=== PATIENT | female | born 1995 | race Caucasian/White ===

== ENCOUNTER 2019-06-27 18:46 | Outpatient (CLI) | payer OTHER ==
[2019-06-27 19:27] LABS: APPEARANCE,URINE SLIGHTLY-CLOUDY; BILIRUBIN,URINE NEGATIVE (NEGATIVE); COLOR,URINE YELLOW; GLUCOSE, URINE NEGATIVE (NEGATIVE); KETONES,URINE NEGATIVE (NEGATIVE); LEUKOCYTE ESTERASE,URINE SMALL (NEGATIVE); NITRITE,URINE NEGATIVE (NEGATIVE); PROTEIN,URINE NEGATIVE (NEGATIVE); URINE SPECIFIC GRAVITY 1.013; UROBILINOGEN,URINE NEGATIVE mg/dL (<2.0)
[2019-06-27 19:55] LABS: URINE AMPHETAMINES SCREEN NEGATIVE; URINE BARBITURATES SCREEN NEGATIVE; URINE BENZODIAZEPINES SCREEN NEGATIVE; URINE COCAINE SCREEN NEGATIVE; URINE MARIJUANA (THC) SCREEN NEGATIVE; URINE METHADONE SCREEN NEGATIVE; URINE PHENCYCLIDINE SCREEN NEGATIVE
--- NOTE | 2019-06-27 21:00 | Non Stress Test Report ---
Non Stress Test Datetime Report Generated by CPN: 06/27/2019 20:59 DEMOGRAPHIC Test Number: 1 EGA NST: 37.6 INDICATION Indication for Study (NST) Other: LC URINE RESULTS Urine Protein, NST: Negative Urine Ketones - NST: Negative Urine Glucose - NST: Negative Urine Blood - NST: Negative MONITORING Monitor Explained: Monitor Explained; Test Explained; Patient Verbalized Understanding Time on Monitor: 06/27/2019 18:57 Time off Monitor: 06/27/2019 19:50 NST Duration: 53 NST INTERVENTIONS NST Interventions: None Physician Notified NST: Dr. Parnell BABY A: [id number] BABY A Movement : Present Contraction Frequency : x1 FHR Baseline : 145 Accelerations : 15X15 Decelerations : None Variability : Moderate 6-25bpm NST Review: Meets Criteria for Reactive NST NST Review and Verified By : Yari Rawls RN NST Results: Reactive NST REPORT Report Trigger: Send Report
== END 2019-06-27 20:00 | disposition home or self-care (01) ==
LOC: LC 18:46
PROVIDERS: ATTEND Obstetrics & Gynecology
DX: O47.1 False labor at or after 37 completed weeks of gestation (principal); Z3A.37 37 weeks gestation of pregnancy
CPT/HCPCS: 80307; 81005; 84112

== ENCOUNTER 2019-07-14 03:19 | Outpatient (CLI) | payer OTHER ==
[2019-07-14 03:49] LABS: APPEARANCE,URINE SLIGHTLY-CLOUDY; BILIRUBIN,URINE NEGATIVE (NEGATIVE); COLOR,URINE YELLOW; GLUCOSE, URINE NEGATIVE (NEGATIVE); KETONES,URINE NEGATIVE (NEGATIVE); LEUKOCYTE ESTERASE,URINE SMALL (NEGATIVE); NITRITE,URINE NEGATIVE (NEGATIVE); PROTEIN,URINE NEGATIVE (NEGATIVE); URINE SPECIFIC GRAVITY 1.012; UROBILINOGEN,URINE NEGATIVE mg/dL (<2.0)
[2019-07-14 04:05] LABS: URINE AMPHETAMINES SCREEN NEGATIVE; URINE BARBITURATES SCREEN NEGATIVE; URINE BENZODIAZEPINES SCREEN NEGATIVE; URINE COCAINE SCREEN NEGATIVE; URINE MARIJUANA (THC) SCREEN NEGATIVE; URINE METHADONE SCREEN NEGATIVE; URINE PHENCYCLIDINE SCREEN NEGATIVE
--- NOTE | 2019-07-14 04:56 | Non Stress Test Report ---
Non Stress Test Datetime Report Generated by CPN: 07/14/2019 04:56 DEMOGRAPHIC EGA NST: 40.2 INDICATION Indication for Study (NST) Other: lc/srom r/o VITAL SIGNS Temperature - NST: 98.5 Pulse - NST: 96 RESP - NST: 17 NBPSYS NST: 130 NBPDIA NST: 66 URINE RESULTS Urine Protein, NST: Negative Urine Ketones - NST: Negative Urine Glucose - NST: Negative Urine Blood - NST: Negative MONITORING Monitor Explained: Monitor Explained; Test Explained; Patient Verbalized Understanding Time on Monitor: 07/14/2019 03:33 Time off Monitor: 07/14/2019 04:23 NST Duration: 50 NST INTERVENTIONS NST Interventions: Reposition Patient Physician Notified NST: Dr Velazquez BABY A: [id number] BABY A Movement : Present Contraction Frequency : irregular FHR Baseline : 125 Accelerations : 15X15 Decelerations : None Variability : Moderate 6-25bpm NST Review: Meets Criteria for Reactive NST NST Review and Verified By : Rebekah Car, RN NST Results: Reactive NST REPORT Report Trigger: Send Report
== END 2019-07-14 04:36 | disposition home or self-care (01) ==
LOC: LC 03:19
PROVIDERS: ATTEND Obstetrics & Gynecology Gynecology
DX: O47.1 False labor at or after 37 completed weeks of gestation (principal); O48.0 Post-term pregnancy; Z3A.40 40 weeks gestation of pregnancy
CPT/HCPCS: 59025; 80307; 81005; 84112

== ENCOUNTER 2019-07-17 06:32 | Inpatient (IN) | payer OTHER ==
[2019-07-17] MEDS ORDERED: RINGERS SOLUTION,LACTATED 1,000 ML IV ONE (06:46)
[2019-07-17] MEDS ORDERED: OXYTOCIN/0.9 % SODIUM CHLORIDE 30 UNIT/500 ML RTUINJ IV PRN ×3 (06:47→17:22)
[2019-07-17] MEDS: RINGERS SOLUTION,LACTATED 1,000 ML IV PRN ×2 (07:03→07:59)
[2019-07-17] MEDS ORDERED: OXYTOCIN 10 UNIT/ML VIAL ONE (07:37)
[2019-07-17] MEDS ORDERED: MISOPROSTOL 0.2 MG TABLET ONE (07:37)
[2019-07-17] MEDS ORDERED: OXYTOCIN/0.9 % SODIUM CHLORIDE 30 UNIT/500 ML RTUINJ ONE (07:38)
[2019-07-17] MEDS ORDERED: LIDOCAINE 1% INJ-PF (10 MG/ML) 30 ML SDV ONE (07:38)
[2019-07-17 07:55] LABS: ABSOLUTE EOSINOPHILS # (AUTO) 0.2 10^3/uL (0.0-0.6); ABSOLUTE LYMPHOCYTES (AUTO) 1.7 10^3/uL (0.5-4.7); ABSOLUTE MONOCYTES (AUTO) 0.6 10^3/uL (0.1-1.4); ABSOLUTE NEUT (AUTO) 6.6 10^3/uL (1.7-8.2); BASOPHILS % (AUTO) 0.3 % (0-2); EOSINOPHILS % (AUTO) 1.9 % (0-6); HEMATOCRIT 36.9 % (36.0-47.0); HEMOGLOBIN 12.4 g/dL (12.0-15.5); LYMPHOCYTES % (AUTO) 18.5 % (13-45); MEAN CORPUSCULAR HEMOGLOBIN 29.2 pg (27.0-33.4); MEAN CORPUSCULAR HGB CONC 33.7 g/dL (32.0-36.0); MEAN CORPUSCULAR VOLUME 86 fl (80-97); MONOCYTES % (AUTO) 6.9 % (3-13); PLATELET COUNT 233 10^3/uL (150-450); RED BLOOD COUNT 4.27 10^6/uL (3.72-5.28); RED CELL DISTRIBUTION WIDTH 13.8 % (11.5-14.0); SEGMENTED NEUTROPHILS % (AUTO) 72.4 % (42-78); TOTAL CELLS COUNTED % (AUTO) 100 %; WHITE BLOOD COUNT 9.1 10^3/uL (4.0-10.5)
[2019-07-17 07:59] LABS: APPEARANCE,URINE SLIGHTLY-CLOUDY; BILIRUBIN,URINE NEGATIVE (NEGATIVE); COLOR,URINE YELLOW; GLUCOSE, URINE NEGATIVE (NEGATIVE); KETONES,URINE NEGATIVE (NEGATIVE); LEUKOCYTE ESTERASE,URINE LARGE (NEGATIVE); NITRITE,URINE NEGATIVE (NEGATIVE); PROTEIN,URINE NEGATIVE (NEGATIVE); URINE SPECIFIC GRAVITY 1.015; UROBILINOGEN,URINE NEGATIVE mg/dL (<2.0)
[2019-07-17 08:15] LABS: URINE AMPHETAMINES SCREEN NEGATIVE; URINE BARBITURATES SCREEN NEGATIVE; URINE BENZODIAZEPINES SCREEN NEGATIVE; URINE COCAINE SCREEN NEGATIVE; URINE MARIJUANA (THC) SCREEN NEGATIVE; URINE METHADONE SCREEN NEGATIVE; URINE PHENCYCLIDINE SCREEN NEGATIVE
--- NOTE | 2019-07-17 09:34 | Admission Physical ---
Datetime Report Generated by CPN: 07/17/2019 09:34 CURRENT ADMISSION Hx Assessment: The History has been Reviewed and is Current Chief Complaint: Scheduled Induction of Labor Indication for Induction: Post Dates Admit Impression : Term, Intrauterine Admit Plan: Admit to Unit; Initiate Labor Induction Protocol ALLERGIES Medication Allergies: No Medication Allergies: No Known Allergies (06/27/2019) Latex: No Latex Allergies Food Allergies: none Environmental Allergies: "outside allergies" OBSTETRICAL HISTORY EDC: 07/12/2019 00:00 : 3 Para: 1 Term: 1 : 0 SAB: 0 IAB: 0 Ectopic: 0 Livin Cesareans: 0 VBACs: 0 Multiple Births: 0 Gestational Diabetes: No Rh Sensitization: No Incompetent Cervix: No GEO: No Infertility: No ART Treatment: No Uterine Anomaly: No IUGR: No Hx Previous C/S: No Macrosomia: No Hx Loss/Stillborn: No PIH: No Hx : No Placenta Previa/Abruption: No Depression/PP Depression: No PTL/PROM: No Post Hemorrhage: No Current Procedures: Ultrasound Obstetrical History Comments: G1- Sab 7-8 weeks, pt denies G2- 2017 G3- Current SEE RECORDS Alcohol: No Marijuana : No Cocaine: No Other Illicit Drugs: No Cigarettes: Former Smoker. [id number] MEDICAL HISTORY Diabetes: No Blood Transfusion: No Pulmonary Disease (Asthma, TB): Yes Breast Disease: No Hypertension: No Dna Analyst Surgery: No Heart Disease: No Hosp/Surgery: Yes Autoimmune Disorder: No Anesthetic Complications: No Kidney Disease: No Abnormal Pap Smear: Yes Neuro/Epilepsy: No Psychiatric Disorders: Yes Other Medical Diseases: No Hepatitis/Liver Disease: No Significant Family History: No Varicosities/Phlebitis: No Trauma/Violence : No Thyroid Dysfunction: No Medical History Comments: Anxiety/depression /wisdom teeth /adnoidectomy /microdisectomy INFECTIOUS HISTORY Gonorrhea: No Genital Herpes: No Chlamydia: No Tuberculosis: No Syphilis: No Hepatitis: No HIV/AIDS Exposure: No Rash or Viral Illness: No HPV: Yes PHYSICAL EXAM General: Normal Lungs: Normal Abdomen: Normal Extremities: Normal Pelvic Type: Adequate Physical Exam Comments: proven to 8lbs 8oz Vital Signs: Reviewed Details Vital Signs: normal with 2 elevated bps-will continue to monitor MEMBRANES Membranes: Intact FETUS A EGA: 40.5 Monitoring: External US FHR Category: Category I Presentation: Vertex Admit Comment: 23yo @ 40w5d into L_D this am for IOL secondary to post dates . Pt is A positive, RI, GBS neg with significant hx of anxiety, obesity, asthma and a microdiscetomy of herniated disc in 2014. Pt was a late transfer to us @ 36w from [facility]. Plan was to start pitocin on admission which is ongoing at this time. Dr. Villafana is the OB button breaker operator today and aware of pt status PLANS FOR LABOR AND DELIVERY Feeding Preference: Breast Benefit of Breast Feed Discussed: Yes Circumcision: N/A INFORMED CONSENT Assignment: Dede Villafana MD Signature: with User ID: Amy : with User ID: Amy
[2019-07-17] MEDS ORDERED: PHENYLEPHRINE HCL INJ/PF 10 MG/1 ML SDV ONE (12:26)
[2019-07-17] MEDS ORDERED: FENTANYL CITRATE INJ/PF 100 MCG/2 ML AMPUL ONE (12:26)
[2019-07-17] MEDS ORDERED: EPHEDRINE SULFATE INJ 50 MG/1 ML AMPULE ONE (12:26)
[2019-07-17] MEDS ORDERED: FENTANYL/BUPIVACAINE/NS/PF 300 MCG/150 ML RTUINJ EPI ONE (12:27)
[2019-07-17] MEDS ORDERED: BUPIVACAINE HCL 0.25 % INJ/PF (2.5 MG/1 ML) 30 ML VIAL ONE (12:28)
--- NOTE | 2019-07-17 16:07 | Delivery Summary ---
Del Sum A-C Datetime Report Generated by CPN: 07/17/2019 16:07 DELIVERY PERSONNEL DELIVERY PERSONNEL: [id number] Delivery Doctor:: Marlene Huang CNM Labor and Delivery Nurse:: MEDHAT Wolf Labor and Delivery Nurse:: Anju Chicas RN Nursery Nurse:: delonte Obrien Tech/REGISTERED MIDWIFE: Jaqui Carreon, AWS DEVELOPER MATERNAL INFORMATION Delivery Anesthesia: Epidural Medications After Delivery: Pitocin Bolus-Please Comment; Pitocin 30 Units in 500ml NS/D5W Meds After Delivery Comment: 30 units Pitocin/1000ml NS bolus Delivery QBL: 150 Maternal Complications: Precipitous Labor (<3hrs) Provider Comments: pt progressed to c/c/1 with urge to push after epidural placement, began pushing and quickly delivered the head in KEN position. Head restituted to straight OA then [place]. Pt continued pushing and anterior shoulder was then delivered along with the rest of the body with some difficulty. Baby placed on maternal abdomen, vigorous respiratory effort and cry with tactile stimulation. Cord allowed to stop pulsating then clamped x2 and cut by FOB (3vc noted, cord blood obtained). Placenta delivered spontaneously intact, fundus firm with massage, moderate bleeding. Vaginal and perineal inspection revealed laceration as stated and hemostatic. Mother and baby remain skin to skin and bonding at this time. LABOR SUMMARY EDC: 07/12/2019 00:00 No. Babies in Womb: 1 Attempted: No Labor Anesthesia: Epidural LABOR INFORMATION Reason for Induction: Postterm Onset of Labor: 07/17/2019 11:00 Complete Dilatation: 07/17/2019 13:38 Oxytocin: Induction Group B Beta Strep: neg Antibiotics # of Doses: 0 Antibiotics Time of Last Dose: n/a Name of Antibiotic Given: n/a Steroids Given: None Reason Steroids Not Administered: Not Applicable MEMBRANES Membranes Rupture Method: Artificial Rupture of Membranes: 07/17/2019 11:24 Length of Rupture (hr): 2.42 Amniotic Fluid Color: Clear Amniotic Fluid Amount: Moderate Amniotic Fluid Odor: Normal STAGES OF LABOR Stage 1 hr: 2 Stage 1 min: 38 Stage 2 hr: 0 Stage 2 min: 11 Stage 3 hr: 0 Stage 3 min: 6 Total Time in Labor hr: 2 Total Time in Labor min: 55 VAGINAL DELIVERY Episiotomy: None Laceration #1: Perineal Laceration Extension #1: First Degree Laceration #2: None Laceration #3: None Other Laceration: superficial vaginal Laceration Repair: Not Applicable Laceration Repair Note: MLL from old scar tissue hemostatic, no need for repair Sponge Count Correct: Yes Sharps Count Correct: N/A BABY A INFORMATION Infant Delivery Date/Time: 07/17/2019 13:49 Method of Delivery: Vaginal Nurse Controlled Delivery: No Born in Route : No : N/A Forceps: N/A Vacuum Extraction: N/A Shoulder Dystocia : No PRESENTATION/POSITION BABY A Presentation: Cephalic Cephalic Presentation: Vertex Vertex Position: Left Occipital Anterior Breech Presentation: N/A PLACENTA INFORMATION BABY A Placenta Delivery Time : 07/17/2019 13:55 Placenta Method of Delivery: Spontaneous Placenta Status: Delivered SCORES BABY A Heart Rate 1 min: >100 bpm Resp Effort 1 min: Good Cry Reflex Irritability 1 min: Cough or Sneeze or Pulls Away Muscle Tone 1 min: Active Motion Color 1 min: Blue/Pale SCORE 1 MIN: 8 Heart Rate 5 min: >100 bpm Resp Effort 5 min: Good Cry Reflex Irritability 5 min: Cough or Sneeze or Pulls Away Muscle Tone 5 min: Active Motion Color 5 min: Body [place], Extremities Blue SCORE 5 MIN: 9 INFORMATION BABY A Gestational Age at Delivery: 40.5 Gestational Status: Full Term- 39- 40.6 Weeks Outcome : Liveborn Condition : Stable Infant Sex: Female IDENTIFICATION BABY A Verification Date/Time: 07/17/2019 13:49 ID Band Number: [id number] Mother's Name Verified: Yes Infant RN Verifying Infant: SLester Tuttle, RN/ D. Sherwine, RNC WEIGHT/LENGTH BABY A Birthweight (gm): 4050 Infant Weight (lb): 8 Infant Weight (oz): 15 Infant Length (in): 20.50 Infant Length (cm): 52.07 CORD INFORMATION BABY A No. Cord Vessels: 3 Nuchal Cord : N/A Cord Blood Taken: Yes-For Storage (Mom's Blood type +) Suction: Mouth; Nose ASSESSMENT BABY A Infant Complications: None Physical Findings at Delivery: Within Normal Limits Infant Respirations: Appears Normal Skin to Skin: Yes Photographic Printer/ALS Called : No Infant Care By: R Pina RN Transferred To: Remains with Mother BABY B INFORMATION : N/A SIGNATURES Assignment: Dede Villafana MD Signature: with User ID: Amy : with User ID: Amy
[2019-07-17] MEDS ORDERED: NA PHOS,M-B/NA PHOS,DI-BA (ADULT) 133 ML ENEMA PR PRN ×2 (16:44→17:22)
[2019-07-17] MEDS ORDERED: BENZOCAINE/MENTHOL AEROSOL SPRAY 56 ML TOP PRN ×2 (16:44→17:22)
[2019-07-17] MEDS ORDERED: ACETAMINOPHEN WITH CODEINE #3 TABLET PO PRN ×4 (16:44→17:22)
[2019-07-17] MEDS ORDERED: DIPHENHYDRAMINE HCL 25 MG CAPSULE PO PRN ×2 (16:44→17:22)
[2019-07-17] MEDS ORDERED: PROMETHAZINE HCL 25 MG SUPP.RECT PR PRN ×2 (16:44→17:22)
[2019-07-17] MEDS ORDERED: PROMETHAZINE HCL INJ 25 MG/1 ML VIAL IV PRN ×2 (16:44→17:22)
[2019-07-17] MEDS ORDERED: MAGNESIUM HYDROXIDE SUSP 30 ML UDCUP PO PRN ×2 (16:44→17:22)
[2019-07-17] MEDS ORDERED: ACETAMINOPHEN 650 MG SUPP.RECT PR PRN ×2 (16:44→17:22)
[2019-07-17] MEDS ORDERED: DIBUCAINE 1% OINTMENT 28 GM TP PRN ×2 (16:44→17:22)
[2019-07-17] MEDS ORDERED: PSEUDOEPHEDRINE HCL 30 MG TABLET PO PRN ×2 (16:44→17:22)
[2019-07-17] MEDS ORDERED: DIPH/PERTUSS(ACELL)/TETANUS VAC/PF 0.5 ML SYR (>=10YO) IM PRN ×2 (16:44→17:22)
[2019-07-17] MEDS ORDERED: MEASLES,MUMPS&RUBELLA VACC/PF 0.5 ML VIAL SUBCUT PRN ×2 (16:44→17:22)
[2019-07-17] MEDS ORDERED: GLYCERIN/WITCH HAZEL LEAF 1 EACH MED..WIPE TP PRN ×2 (16:44→17:22)
[2019-07-17] MEDS ORDERED: PROMETHAZINE HCL 25 MG TABLET PO PRN ×2 (16:44→17:22)
[2019-07-17] MEDS ORDERED: ZOLPIDEM TARTRATE 5 MG TABLET PO PRN ×2 (16:44→17:22)
[2019-07-17] MEDS ORDERED: FERROUS SULFATE 325 MG TABLET PO SCH (18:00)
[2019-07-17] MEDS ORDERED: DOCUSATE SODIUM 100 MG CAPSULE PO SCH (18:00)
[2019-07-17] MEDS: DOCUSATE SODIUM 100 MG CAPSULE PO SCH (18:11)
[2019-07-17] MEDS: FERROUS SULFATE 325 MG TABLET PO SCH (18:11)
[2019-07-17] MEDS ORDERED: IBUPROFEN 800 MG TABLET ONE (18:16)
[2019-07-17] MEDS ORDERED: IBUPROFEN 800 MG TABLET PO SCH (22:00)
[2019-07-17] MEDS ORDERED: FAMOTIDINE 20 MG TABLET PO SCH (22:00)
[2019-07-17] MEDS: IBUPROFEN 800 MG TABLET PO SCH (22:24)
[2019-07-17] MEDS: FAMOTIDINE 20 MG TABLET PO SCH (22:25)
[2019-07-18] MEDS: IBUPROFEN 800 MG TABLET PO SCH ×3 (05:54→21:45)
[2019-07-18 06:55] LABS: HEMATOCRIT 35.9 % (36.0-47.0); HEMOGLOBIN 11.9 g/dL (12.0-15.5); MEAN CORPUSCULAR HEMOGLOBIN 28.7 pg (27.0-33.4); MEAN CORPUSCULAR HGB CONC 33.2 g/dL (32.0-36.0); MEAN CORPUSCULAR VOLUME 87 fl (80-97); PLATELET COUNT 226 10^3/uL (150-450); RED BLOOD COUNT 4.14 10^6/uL (3.72-5.28); RED CELL DISTRIBUTION WIDTH 14.1 % (11.5-14.0); WHITE BLOOD COUNT 12.5 10^3/uL (4.0-10.5)
[2019-07-18] MEDS: FAMOTIDINE 20 MG TABLET PO SCH ×2 (09:30→21:44)
[2019-07-18] MEDS: DOCUSATE SODIUM 100 MG CAPSULE PO SCH ×2 (09:30→17:14)
[2019-07-18] MEDS: PRENATAL VITAMIN W DHA CAPSULE PO SCH (09:30)
[2019-07-18] MEDS: SENNOSIDES/DOCUSATE 8.6-50 MG 1 EACH TABLET PO SCH (09:30)
[2019-07-18] MEDS: FERROUS SULFATE 325 MG TABLET PO SCH ×2 (09:30→17:14)
[2019-07-18] MEDS ORDERED: SENNOSIDES/DOCUSATE 8.6-50 MG 1 EACH TABLET PO SCH (10:00)
[2019-07-18] MEDS ORDERED: PRENATAL VITAMIN W DHA CAPSULE PO SCH (10:00)
--- NOTE | 2019-07-18 12:06 | PDOC PROGRESS REPORT ---
Subjective-OB Progress Note for:: 07/18/19 Subjective: reports bleeding slowing, pain controlled with current meds. denies needs Physical Exam (OB) Vital Signs: Temp Pulse Resp BP Pulse Ox 97.5 F 68 18 122/54 L 97 07/18/19 07:37 07/18/19 07:37 07/18/19 07:37 07/18/19 07:37 07/18/19 07:37 Intake & Output 07/17/19 07/18/19 07/19/19 06:59 06:59 06:59 Intake Total 117 Balance 117 Weight 126 kg - Abdomen Description: Soft Hernia Present: No Fundal Description: Firm, Midline Fundal Height: u/u - u/2 - Abdominal Distension: No distension Tenderness: Nontender - Extremities Lower extremities: Walt's sign - neg Calf: Normal, Nontender Objective-Diagnostic Laboratory: 07/18/19 06:30 07/18/19 06:30 WBC 12.5 H RBC 4.14 Hgb 11.9 L Hct 35.9 L MCV 87 MCH 28.7 MCHC 33.2 RDW 14.1 H Plt Count 226 Assessment and Plan(PN) - Assessment and Plan (1) Encounter for induction of labor Is this a current diagnosis for this admission?: Yes (2) Vaginal delivery Is this a current diagnosis for this admission?: Yes - Time Spent with Patient Time with patient: Less than 15 minutes Medications reviewed and adjusted accordingly: Yes - Disposition Anticipated Discharge: Home Within: within 24 hours
[2019-07-19] MEDS: IBUPROFEN 800 MG TABLET PO SCH ×2 (05:20→13:38)
[2019-07-19] MEDS: FERROUS SULFATE 325 MG TABLET PO SCH (10:00)
[2019-07-19] MEDS: SENNOSIDES/DOCUSATE 8.6-50 MG 1 EACH TABLET PO SCH (10:00)
[2019-07-19] MEDS: FAMOTIDINE 20 MG TABLET PO SCH (10:00)
[2019-07-19] MEDS: DOCUSATE SODIUM 100 MG CAPSULE PO SCH (10:00)
[2019-07-19] MEDS: PRENATAL VITAMIN W DHA CAPSULE PO SCH (10:00)
--- NOTE | 2019-07-19 12:08 | PDOC DISCHARGE SUMMARY ---
Impression - Admit/DC Date/PCP Admission Date/Primary Care Provider: 07/17/19 06:32 SAY DUMONT MD Discharge Date: 07/19/19 - Discharge Diagnosis (1) Encounter for induction of labor Is this a current diagnosis for this admission?: Yes (2) Vaginal delivery Is this a current diagnosis for this admission?: Yes - Additional Information Discharge Diet: Regular Discharge Activity: Balance Activity w/Rest, Pelvic Rest Referrals: SAY DUMONT MD [Primary Care Provider] - Prescriptions: Ibuprofen [Motrin 800 mg Tablet] 800 mg PO Q8HP PRN #60 tablet PRN Reason: Sertraline HCl [Zoloft 50 mg Tablet] 50 mg PO DAILY #30 tablet Home Medications: Vit No.130/Iron/Folic [ Tablet] 1 each PO DAILY 06/27/19 Ibuprofen [Motrin 800 mg Tablet] 800 mg PO Q8HP PRN #60 tablet 07/19/19 Sertraline HCl [Zoloft 50 mg Tablet] 50 mg PO DAILY #30 tablet 07/19/19 Results Laboratory Results: WBC 12.5 10^3/uL (4.0-10.5) H 07/18/19 06:30 RBC 4.14 10^6/uL (3.72-5.28) 07/18/19 06:30 Hgb 11.9 g/dL (12.0-15.5) L 07/18/19 06:30 Hct 35.9 % (36.0-47.0) L 07/18/19 06:30 MCV 87 fl (80-97) 07/18/19 06:30 MCH 28.7 pg (27.0-33.4) 07/18/19 06:30 MCHC 33.2 g/dL (32.0-36.0) 07/18/19 06:30 RDW 14.1 % (11.5-14.0) H 07/18/19 06:30 Plt Count 226 10^3/uL (150-450) 07/18/19 06:30 Lymph % (Auto) 18.5 % (13-45) 07/17/19 07:20 [place] % (Auto) 6.9 % (3-13) 07/17/19 07:20 Eos % (Auto) 1.9 % (0-6) 07/17/19 07:20 Baso % (Auto) 0.3 % (0-2) 07/17/19 07:20 Absolute Neuts (auto) 6.6 10^3/uL (1.7-8.2) 07/17/19 07:20 Absolute Lymphs (auto) 1.7 10^3/uL (0.5-4.7) 07/17/19 07:20 Absolute Monos (auto) 0.6 10^3/uL (0.1-1.4) 07/17/19 07:20 Absolute Eos (auto) 0.2 10^3/uL (0.0-0.6) 07/17/19 07:20 Absolute Basos (auto) 0.0 10^3/uL (0.0-0.2) 07/17/19 07:20 Seg Neutrophils % 72.4 % (42-78) 07/17/19 07:20 Urine Color YELLOW 07/17/19 06:42 Urine Appearance SLIGHTLY-CLOUDY 07/17/19 06:42 Urine pH 6.0 (5.0-9.0) 07/17/19 06:42 Ur Specific [place] 1.015 07/17/19 06:42 Urine Protein NEGATIVE mg/dL (NEGATIVE) 07/17/19 06:42 Urine Glucose (UA) NEGATIVE mg/dL (NEGATIVE) 07/17/19 06:42 Urine Ketones NEGATIVE mg/dL (NEGATIVE) 07/17/19 06:42 Urine Blood NEGATIVE (NEGATIVE) 07/17/19 06:42 Urine Nitrite NEGATIVE (NEGATIVE) 07/17/19 06:42 Urine Bilirubin NEGATIVE (NEGATIVE) 07/17/19 06:42 Urine Urobilinogen NEGATIVE mg/dL (<2.0) 07/17/19 06:42 Ur Leukocyte Esterase LARGE (NEGATIVE) H 07/17/19 06:42 Urine Ascorbic Acid NEGATIVE (NEGATIVE) 07/17/19 06:42 Urine Opiates Screen NEGATIVE 07/17/19 06:42 Urine Methadone Screen NEGATIVE 07/17/19 06:42 Ur Barbiturates Screen NEGATIVE 07/17/19 06:42 Ur Phencyclidine Scrn NEGATIVE 07/17/19 06:42 Ur Amphetamines Screen NEGATIVE 07/17/19 06:42 U Benzodiazepines Scrn NEGATIVE 07/17/19 06:42 Urine Cocaine Screen NEGATIVE 07/17/19 06:42 U Marijuana (THC) Screen NEGATIVE 07/17/19 06:42 RPR NONREACTIVE (NONREACTIVE) 07/17/19 07:20 Blood Type A POSITIVE 07/17/19 07:20 Antibody Screen NEGATIVE 07/17/19 07:20 Plan Plan of Treatment: follow up in 4 weeks at [facility] for post check
[2019-07-19 12:10] VITALS: BP 124/69
== END 2019-07-19 14:00 | disposition home or self-care (01) | DRG 807 ==
LOC: LR 06:32 → 2S 16:45
PROVIDERS: ADMIT Student in an Organized Health Care Education/Training Program; ATTEND Student in an Organized Health Care Education/Training Program
PROC: 10E0XZZ Delivery of Products of Conception, External Approach (ICD-10-PCS; principal; 2019-07-17)
PROC: 0HQ9XZZ Repair Perineum Skin, External Approach (ICD-10-PCS; 2019-07-17)
PROC: 10907ZC Drainage of Amniotic Fluid, Therapeutic from Products of Conception, Via Natural or Artificial Opening (ICD-10-PCS; 2019-07-17)
DX: O48.0 Post-term pregnancy (principal); Z37.0 Single live birth; O99.52 Diseases of the respiratory system complicating childbirth; J45.909 Unspecified asthma, uncomplicated; O70.0 First degree perineal laceration during delivery; O62.3 Precipitate labor; O99.344 Other mental disorders complicating childbirth; F41.9 Anxiety disorder, unspecified; F32.9 Major depressive disorder, single episode, unspecified; Z3A.40 40 weeks gestation of pregnancy; O99.214 Obesity complicating childbirth; E66.9 Obesity, unspecified; Z87.891 Personal history of nicotine dependence
CPT/HCPCS: 1967; 36415; 80307; 81005; 85025; 85027; 86592; 86850; 86900; 86901; J2370; J2590; J3010; J3490